=== PATIENT | male | born 1940 | race Caucasian/White ===

== ENCOUNTER 2018-02-15 06:10 | Outpatient (CLI) | payer MEDICARE, OTHER ==
[~2018-02-15] VITALS: Ht 175.3 cm; Wt 104.3 kg
[~2018-02-15 06:10] MED LIST: AMIL1TAB PO; ASP81TEC PO; ATEN25TA PO; ATR20T PO; ENAL5TAB PO; POTA10CA43 PO
[2018-02-15] MEDS ORDERED: ENAL5TAB PO (16:04)
[2018-02-15] MEDS ORDERED: ATOR20TA66 PO (16:04)
[2018-02-15] MEDS ORDERED: AMIL1TAB PO (16:04)
[2018-02-15] MEDS ORDERED: ATEN25TA PO (16:04)
[2018-02-15] MEDS ORDERED: POTA-51 PO (16:04)
[2018-02-15] MEDS ORDERED: ASPI-999 PO (16:04)
== END 2018-02-15 16:07 ==
LOC: PREOP 06:10
PROVIDERS: ATTEND Specialist
DX: Z01.818 Encounter for other preprocedural examination (principal)

== ENCOUNTER 2018-02-17 08:50 | Day surgery (SDC) | payer MEDICARE, OTHER ==
[~2018-02-17] VITALS: Ht 175.3 cm; Wt 104.3 kg
[~2018-02-17 08:50] MED LIST changes: +ASPI-999 PO; +ATOR20TA66 PO; +POTA-51 PO
[2018-02-17 09:00] VITALS: BP 161/99
[2018-02-17] MEDS ORDERED: POVIDONE (BETADINE) OPHTH SOLN 5% 30 ML OP ONE (09:00)
[2018-02-17] MEDS ORDERED: VANCOMYCIN/BSS (COMPOUNDED) 10 MG/ML SYR OP ONE (09:00)
[2018-02-17] MEDS ORDERED: EPINEPHrine INJECTION 1 MG/ML AMP INJ ONE (09:00)
[2018-02-17] MEDS ORDERED: LIDOCAINE PF 1% 2 ML AMP IR PRN (09:00)
[2018-02-17] MEDS ORDERED: TIMOLOL MALEATE 0.5% 5 ML (TIMOPTIC) BTL OU PRN (09:00)
[2018-02-17] MEDS: TETRACAINE 0.5% OPHTH SOLN 4 ML BTL (SINGLE DOSE ONLY) OU PRN ×4 (09:13→09:22)
[2018-02-17] MEDS: CYCLOPENTOLATE 1% (CYCLOGYL) 2 ML DROPS OP SCH ×3 (09:16→09:22)
[2018-02-17] MEDS: PHENYLEPHRINE 10% OPHTH (NEO-SYN) 5 ML BTL OU SCH ×3 (09:16→09:22)
[2018-02-17] MEDS ORDERED: MIDAZOLAM 2 MG/2 ML (VERSED) VIAL ONE (09:26)
--- NOTE | 2018-02-17 09:30 | Ophthalmologist Pre-Op Note ---
Pre-Operative Progress Note H&P Reviewed The H&P was reviewed, patient examined and no changes noted. Date H&P Reviewed: Feb 17, 2018 Time H&P Reviewed: 09:30 Pre-Op Dx Cataract, Right Eye MADELINE MUJICA MD Feb 17, 2018 09:30
--- NOTE | 2018-02-17 09:51 | Ophthalmology Operative Report ---
Cataract removal/placement IOL PREOPERATIVE DIAGNOSIS: Cataract Right Eye POSTOPERATIVE DIAGNOSIS: Cataract Right Eye PROCEDURE: Cataract removal and placement of posterior chamber implant, right eye SURGEON: Rajendra Mujica ANESTHESIA: Topical with sedation COMPLICATIONS: None ESTIMATED BLOOD LOSS: Minimal DESCRIPTION OF PROCEDURE: After proper informed consent was obtained, the patient, a 77 male, was taken to the Operating Room and the right eye was anesthetized with tetracaine. The right eye was then prepped and draped in the usual manner. A wire lid speculum was placed. A paracentesis was made at the left hand position. Preservative free lidocaine was injected into the anterior chamber followed by viscoelastic. A clear corneal incision was made in the temporal position. A capsulorrhexis was preformed and the central nuclear and cortical material were removed. The posterior capsule was polished and Phoenix 21.0 [id number] IOL was placed into the capsular bag. The residual viscoelastic was aspirated and balanced saline solution was injected into the anterior chamber. Vancomycin was injected into the anterior chamber. The wound was checked and found to be water tight. The patient tolerated the procedure well without complications. RAJENDRA MUJICA MD Feb 17, 2018 09:51
[2018-02-17 10:00] VITALS: BP 143/84
--- NOTE | 2018-02-17 10:21 | Anesthesia-General Post-Op ---
MAC Patient Condition Mental Status/LOC: Same as Preop Cardiovascular: Satisfactory Nausea/Vomiting: Absent Respiratory: Satisfactory Pain: Controlled Complications: Absent Post Op Complications Complications None Follow Up Care/Instructions Patient Instructions None needed. Anesthesiology Discharge Order Discharge Order Patient is doing well, no complaints, stable vital signs, no apparent adverse anesthesia problems. No complications reported per nursing. WALTER WHITE CRNA Feb 17, 2018 10:21
== END 2018-02-17 10:00 | disposition home or self-care (01) ==
LOC: SDC 08:50
PROVIDERS: ATTEND Specialist
DX: H26.9 Unspecified cataract (principal); I10 Essential (primary) hypertension; Z87.891 Personal history of nicotine dependence; Z79.82 Long term (current) use of aspirin

== ENCOUNTER 2019-09-13 12:56 | Emergency (ER) | payer MEDICARE, OTHER ==
[~2019-09-13] VITALS: Ht 167 cm; Wt 100.3 kg
[~2019-09-13 12:56] MED LIST changes: +ENLP5T PO
[2019-09-13] MEDS ORDERED: fentaNYL INJECTION 100 MCG/2 ML AMP IVP ONE (14:30)
[2019-09-13 14:37] LABS: BASOPHILS # (AUTO) 0.1 10^3/uL (0.0-0.1); BASOPHILS % (AUTO) 0 % (0-10); EOSINOPHILS # (AUTO) 0.2 10^3/uL (0.0-0.3); EOSINOPHILS % (AUTO) 1 % (0-10); HEMATOCRIT 50 % (40-54); HEMOGLOBIN 17.4 G/DL (13.3-17.7); LYMPHOCYTES # (AUTO) 1.7 X 10^3 (1.0-4.0); LYMPHOCYTES % (AUTO) 9 % (12-44); MEAN CORPUSCULAR HEMOGLOBIN 31 PG (25-34); MEAN CORPUSCULAR HGB CONC 35 G/DL (32-36); MEAN CORPUSCULAR VOLUME 90 FL (80-99); MEAN PLATELET VOLUME 10.1 FL (7.4-10.4); MONOCYTES # (AUTO) 1.4 X 10^3 (0.0-1.0); MONOCYTES % (AUTO) 8 % (0-12); NEUTROPHILS # (AUTO) 15.4 X 10^3 (1.8-7.8); NEUTROPHILS % (AUTO) 82 % (42-75); PLATELET COUNT 311 10^3/uL (130-400); RED CELL DISTRIBUTION WIDTH 12.9 % (10.0-14.5); WHITE BLOOD COUNT 18.7 10^3/uL (4.3-11.0)
[2019-09-13 15:01] LABS: BAND NEUTROPHILS 0 %; BASOPHILS % (MANUAL) 0 %; EOSINOPHILS % (MANUAL) 1 %; LYMPHOCYTES % (MANUAL) 13 %; MONOCYTES % (MANUAL) 5 %; NEUTROPHILS % (MANUAL) 81 %; RBC MORPH NORMAL
[2019-09-13 15:03] LABS: ALANINE AMINOTRANSFERASE 17 U/L (0-55); ALBUMIN 4.4 GM/DL (3.2-4.5); ALKALINE PHOSPHATASE 96 U/L (40-136); BILIRUBIN,TOTAL 0.8 MG/DL (0.1-1.0); BUN/CREATININE RATIO 15; CALCIUM 8.9 MG/DL (8.5-10.1); CARBON DIOXIDE 25 MMOL/L (21-32); CHLORIDE 100 MMOL/L (98-107); CREATININE SERUM 0.97 MG/DL (0.60-1.30); GFR ESTIMATED > 60; GLUCOSE 100 MG/DL (70-105); POTASSIUM 3.7 MMOL/L (3.6-5.0); SODIUM 137 MMOL/L (135-145); TOTAL PROTEIN 7.2 GM/DL (6.4-8.2)
[2019-09-13] MEDS ORDERED: HOLD METFORMIN - RECEIVED CONTRAST 20 ML VIAL IV SCH (15:30)
[2019-09-13] MEDS ORDERED: IOHEXOL 350 MG/ML 100 ML (OMNIPAQUE 350) VIAL IV ONE (15:30)
--- NOTE | 2019-09-13 16:09 | Diagnostic Imaging Report ---
EXAMINATION: CT Abdomen and Pelvis with intravenous contrast. TECHNIQUE: Multiple contiguous axial images were obtained through the abdomen and pelvis after the uneventful administration of intravenous contrast. All CT scans use one or more of the following dose optimizing techniques: automated exposure control, MA and/or KvP adjustment based on a patient size and exam type, or iterative reconstruction. HISTORY: Difficulty urinating. COMPARISON: 09/28/2006. FINDINGS: Limited views of the lower thorax show mild coronary artery calcifications. The liver is normal without focal lesion. There is no biliary ductal dilation. Gallbladder is absent. Pancreas is normal. Calcified granulomas are present in the liver and spleen. Adrenal glands are normal. Cyst is present in the left kidney. No suspicious kidney lesions. There is no hydronephrosis. Urinary bladder is distended. There is a fat-containing umbilical hernia. Prostate is enlarged. There is a small fat-containing right inguinal hernia. Large stool ball is present in the rectum with perirectal stranding and mild distal rectal wall thickening. No free fluid or air. No abdominal or pelvic lymphadenopathy. Aorta is normal in caliber without aneurysm. There are no suspicious osseus lesions. IMPRESSION: 1. Enlarged prostate with distended bladder, concerning for chronic outlet obstruction. 2. Rectal wall thickening and presacral stranding in the setting of large stool ball, concerning for stercoral proctitis. Dictated by: Dictated on workstation # [id number]
[2019-09-13 16:14] LABS: BILIRUBIN,URINE NEGATIVE (NEGATIVE); CLARITY,URINE CLEAR; COLOR,URINE YELLOW; GLUCOSE, URINE (UA) NEGATIVE (NEGATIVE); KETONES,URINE NEGATIVE (NEGATIVE); LEUKOCYTE ESTERASE ,URINE NEGATIVE (NEGATIVE); NITRITE,URINE NEGATIVE (NEGATIVE); PH,URINE 6.5 (5-9); PROTEIN,URINE NEGATIVE (NEGATIVE)
[2019-09-13 16:23] LABS: BACTERIA,URINE NEGATIVE /HPF
[2019-09-13] MEDS ORDERED: LEVOFLOXACIN 500 MG/100 ML IV 100 ML IV ONE (16:30)
[2019-09-13] MEDS ORDERED: KETOROLAC 30 MG/ML VIAL IVP ONE (16:30)
[2019-09-13] MEDS ORDERED: LIDOCAINE 2% VISCOUS 15 ML UDC MM ONE (16:45)
--- NOTE | 2019-09-13 16:55 | NUR ---
PROVIDER IN ROOM FOR RECTAL EXAM AND FECAL OCCULT EXAM
--- NOTE | 2019-09-13 17:07 | ED Abdominal Pain ---
General Chief Complaint: Abdominal/GI Problems Stated Complaint: LOWER ABD PAIN Nursing Triage Note: LOWER ABD PAIN STARTING THIS AM. STATES HE USED A SUPPOSITORY AND AN ENEMA AND ONLY HAVING LIQUID RESULTS. Sepsis Screen: No Definite Risk Source of Information: Patient Exam Limitations: No Limitations History of Present Illness Date Seen by Provider: Sep 13, 2019 Time Seen by Provider: 13:34 Initial Comments This 79-year-old gentleman presents to the emergency room with complaints of pelvic pain, feeling of urinary urgency without being able to void, and constipation. It has been about 48 hours since he has been able to produce a bowel movement. He denies any vomiting or fever. He does not report any blood in the urine or stools. He did try using a suppository and an enema and has had some liquid returned from the enema. He normally takes a stool softener every day. Allergies and Home Medications Allergies Coded Allergies: No Known Drug Allergies (Unverified , 02/15/18) Home Medications Amiloride/Hydrochlorothiazide 1 Each Tablet, 1 EACH PO DAILY, (Reported) Aspirin 81 Mg Tab.chew, 81 MG PO DAILY, (Reported) Atenolol 25 Mg Tablet, 25 MG PO DAILY, (Reported) Atorvastatin Calcium 20 Mg Tablet, 20 MG PO DAILY, (Reported) Enalapril Maleate 5 Mg Tablet, 5 MG PO DAILY, (Reported) Levofloxacin 500 Mg Tablet, 500 MG PO DAILY Prescribed by: SAUNDRA PERKINS on 09/13/191808 Metronidazole 500 Mg Tablet, 500 MG PO TID Prescribed by: SAUNDRA PERKINS on 09/13/191808 Polyethylene Glycol 3350 119 Gm Powder, 238 GM PO ONCE Mix with 64 oz of Gatorade and drink 8 ounces every 15 minutes until a good stool is produced. Prescribed by: SAUNDRA PERKINS on 09/13/191808 Potassium Chloride 20 Meq Tablet.er, 20 MEQ PO BID, (Reported) Tamsulosin HCl 0.4 Mg Cap, 0.4 MG PO DAILY Prescribed by: SAUNDRA PERKINS on 09/13/191808 Patient Home Medication List Home Medication List Reviewed: Yes Review of Systems Review of Systems Constitutional: no symptoms reported EENTM: No Symptoms Reported Respiratory: No Symptoms Reported Cardiovascular: No Symptoms Reported Gastrointestinal: See HPI Genitourinary: See HPI Musculoskeletal: no symptoms reported Skin: no symptoms reported Psychiatric/Neurological: No Symptoms Reported Endocrine: No Symptoms Reported Hematologic/Lymphatic: No Symptoms Reported Past Eawvjas-Euqzwq-Jugcgx Hx Past Med/Social Hx: Reviewed and Corrections made Patient Social History Alcohol Use: Denies Use Recreational Drug Use: No Smoking Status: Former Smoker Recent Foreign Travel: No Contact w/Someone Who Travel: No Recent Infectious Disease Expo: No Recent Hopitalizations: No Immunizations Up To Date PED Vaccines UTD: Yes Date of Pneumonia Vaccine: Apr 02, 2010 Date of Influenza Vaccine: May 06, 2011 Past Medical History Surgeries: Yes Gallbladder Respiratory: No Cardiac: Yes Hypertension Neurological: No Reproductive Disorders: No Sexually Transmitted Disease: No Genitourinary: No Gastrointestinal: No Musculoskeletal: No Endocrine: No HEENT: No Cancer: No Psychosocial: No Integumentary: No Blood Disorders: No Physical Exam Vital Signs Vital Signs - First Documented 09/13/19 13:05 Temp 35.8 Pulse 72 Resp 16 B/P (MAP) 155/99 (117) Pulse Ox 96 O2 Delivery Room Air Capillary Refill : Less Than 3 Seconds Height/Weight/BMI Height: 5'9.00" Weight: 230lbs. 0.0oz. 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, no motor/sensory deficits, alert, normal mood/affect, oriented x 3 Skin: normal color, warm/dry Progress/Results/Core Measures Results/Orders Lab Results Laboratory Tests Test 09/13/19 14:27 09/13/19 16:04 Range/Units White Blood Count 18.7 H 4.3-11.0 10^3/uL Red Blood Count 5.55 4.35-5.85 10^6/uL Hemoglobin 17.4 13.3-17.7 G/DL Hematocrit 50 40-54 % Mean Corpuscular Volume 90 80-99 FL Mean Corpuscular Hemoglobin 31 25-34 PG Mean Corpuscular Hemoglobin Concent 35 32-36 G/DL Red Cell Distribution Width 12.9 10.0-14.5 % Platelet Count 311 130-400 10^3/uL Mean Platelet Volume 10.1 7.4-10.4 FL Neutrophils (%) (Auto) 82 H 42-75 % Lymphocytes (%) (Auto) 9 L 12-44 % Monocytes (%) (Auto) 8 0-12 % Eosinophils (%) (Auto) 1 0-10 % Basophils (%) (Auto) 0 0-10 % Neutrophils # (Auto) 15.4 H 1.8-7.8 X 10^3 Lymphocytes # (Auto) 1.7 1.0-4.0 X 10^3 Monocytes # (Auto) 1.4 H 0.0-1.0 X 10^3 Eosinophils # (Auto) 0.2 0.0-0.3 10^3/uL Basophils # (Auto) 0.1 0.0-0.1 10^3/uL Neutrophils % (Manual) 81 % Lymphocytes % (Manual) 13 % Monocytes % (Manual) 5 % Eosinophils % (Manual) 1 % Basophils % (Manual) 0 % Band Neutrophils 0 % Blood Morphology Comment NORMAL Sodium Level 137 135-145 MMOL/L Potassium Level 3.7 3.6-5.0 MMOL/L Chloride Level 100 98-107 MMOL/L Carbon Dioxide Level 25 21-32 MMOL/L Anion Gap 12 5-14 MMOL/L Blood Urea Nitrogen 15 7-18 MG/DL Creatinine 0.97 0.60-1.30 MG/DL Estimat Glomerular Filtration Rate > 60 BUN/Creatinine Ratio 15 Glucose Level 100 70-105 MG/DL Calcium Level 8.9 8.5-10.1 MG/DL Corrected Calcium 8.6 8.5-10.1 MG/DL Total Bilirubin 0.8 0.1-1.0 MG/DL Aspartate Amino Transf (AST/SGOT) 18 5-34 U/L Alanine Aminotransferase (ALT/SGPT) 17 0-55 U/L Alkaline Phosphatase 96 40-136 U/L C-Reactive Protein High Sensitivity 0.09 0.00-0.50 MG/DL Total Protein 7.2 6.4-8.2 GM/DL Albumin 4.4 3.2-4.5 GM/DL Urine Color YELLOW Urine Clarity CLEAR Urine pH 6.5 5-9 Urine Specific [place] 1.010 L 1.016-1.022 Urine Protein NEGATIVE NEGATIVE Urine Glucose (UA) NEGATIVE NEGATIVE Urine Ketones NEGATIVE NEGATIVE Urine Nitrite NEGATIVE NEGATIVE Urine Bilirubin NEGATIVE NEGATIVE Urine Urobilinogen 0.2 < = 1.0 MG/DL Urine Leukocyte Esterase NEGATIVE NEGATIVE Urine RBC (Auto) NEGATIVE NEGATIVE Urine RBC NONE /HPF Urine WBC NONE /HPF Urine Squamous Epithelial Cells NONE /HPF Urine Crystals NONE /LPF Urine Bacteria NEGATIVE /HPF Urine Casts NONE /LPF Urine Mucus NEGATIVE /LPF Urine Culture Indicated NO My Orders Orders - SAUNDRA CLIFFORD MD Cbc With Automated Diff (09/13/19 13:02) Comprehensive Metabolic Panel (09/13/19 13:02) Hs C Reactive Protein (09/13/19 13:02) Ua Culture If Indicated (09/13/19 13:02) Ed Iv/Invasive Line Start (09/13/19 13:02) Bladder Scan (09/13/19 13:48) Fentanyl Injection (Sublimaze Injection (09/13/19 14:30) Manual Differential (09/13/19 14:27) Ct Abdomen/Pelvis W (09/13/19 15:14) Iohexol Injection (Omnipaque 350 Mg/Ml 1 (09/13/19 15:30) Received Contrast (Hold Metformin- Contr (09/13/19 15:30) Ketorolac Injection (Toradol Injection) (09/13/19 16:30) Levofloxacin 500 Mg/100 Ml Iv (Levaquin (09/13/19 16:30) Lidocaine 2% Viscous 15 Ml (Xylocaine Vi (09/13/19 16:45) Medications Given in ED Current Medications Medications Dose Ordered Sig/Jorge A Route Start Time Stop Time Status Last Admin Dose Admin Fentanyl Citrate 50 mcg ONCE ONCE IVP 09/13/19 14:30 09/13/19 14:31 DC 09/13/19 14:43 50 MCG Iohexol 100 ml ONCE ONCE IV 09/13/19 15:30 09/13/19 15:31 DC 09/13/19 15:59 100 ML Ketorolac Tromethamine 15 mg ONCE ONCE IVP 09/13/19 16:30 09/13/19 16:31 DC 09/13/19 16:40 15 MG Levofloxacin/ Dextrose 100 ml @ 100 mls/hr ONCE ONCE IV 09/13/19 16:30 09/13/19 17:29 DC 09/13/19 16:39 100 MLS/HR Lidocaine HCl 5 ml ONCE ONCE MM 09/13/19 16:45 09/13/19 16:46 DC 09/13/19 16:40 5 ML Vital Signs/I&O 09/13/19 13:05 Temp 35.8 Pulse 72 Resp 16 B/P (MAP) 155/99 (117) Pulse Ox 96 O2 Delivery Room Air Blood Pressure Mean: 117 Progress Progress Note : Progress Note Bladder scan was performed and showed no significant urine volume. However, by the time of CT scan the bladder was full and mildly distended. Patient did void at that time but not as much as what was in his bladder. CT was obtained because of leukocytosis in the context of his pain. CT revealed possible chronic urinary obstruction along with inflammatory changes consistent with proctitis with associated fecal ball. I discussed the case with Dr. Carlin who recommended manual disimpaction. Patient was treated with Toradol and then an attempt at manual disimpaction was made using viscous lidocaine as the lubricant. Small amount of stool was broken up and extracted. A ballotable residual fecal ball was still palpable. Patient did pass some stool once after the CT scan and once after the attempt at fecal disimpaction. Dr. Carlin recommended aggressive washout with polyethylene glycol and enemas. See discharge instructions. Diagnostic Imaging Diagonstic Imaging: CT Plain Films/CT/US/NM/MRI: abdomen, pelvis Comments CT abdomen and pelvis viewed by me and report reviewed. See report below: NAME: JUAN SALCEDO [facility] REC#: [id number] PT STATUS: REG ER : 1940 PHYSICIAN: SAUNDRA CLIFFORD MD ADMIT DATE: 09/13/19/ER Signed Date of Exam:09/13/19 CT ABDOMEN/PELVIS W EXAMINATION: CT Abdomen and Pelvis with intravenous contrast. TECHNIQUE: Multiple contiguous axial images were obtained through the abdomen and pelvis after the uneventful administration of intravenous contrast. All CT scans use one or more of the following dose optimizing techniques: automated exposure control, MA and/or KvP adjustment based on a patient size and exam type, or iterative reconstruction. HISTORY: Difficulty urinating. COMPARISON: 09/28/2006. FINDINGS: Limited views of the lower thorax show mild coronary artery calcifications. The liver is normal without focal lesion. There is no biliary ductal dilation. Gallbladder is absent. Pancreas is normal. Calcified granulomas are present in the liver and spleen. Adrenal glands are normal. Cyst is present in the left kidney. No suspicious kidney lesions. There is no hydronephrosis. Urinary bladder is distended. There is a fat-containing umbilical hernia. Prostate is enlarged. There is a small fat-containing right inguinal hernia. Large stool ball is present in the rectum with perirectal stranding and mild distal rectal wall thickening. No free fluid or air. No abdominal or pelvic lymphadenopathy. Aorta is normal in caliber without aneurysm. There are no suspicious osseus lesions. IMPRESSION: 1. Enlarged prostate with distended bladder, concerning for chronic outlet obstruction. 2. Rectal wall thickening and presacral stranding in the setting of large stool ball, concerning for stercoral proctitis. Dictated by: Dictated on workstation # [id number] Dict: 09/13/19 1557 Trans: 09/13/19 1647 [id number] Interpreted by: CORNELIA PASCAL MD Electronically signed by: CORNELIA PASCAL MD 09/13/19 1647 Departure Impression Primary Impression: Proctitis Additional Impressions: Fecal impaction in rectum Urinary retention Disposition: 01 HOME, SELF-CARE Condition: Improved Departure-Patient Inst. Referrals: CORNELIA CAN MD (PCP) Primary Care Physician SANDY CARLIN DO Patient Instructions: Fecal Impaction, Proctitis Add. Discharge Instructions: Use MiraLAX (polyethylene glycol) as directed. Mix 238 g with 64 ounces of Gatorade. Try to drink 8 ounces every 15 minutes until a good stool is produced. You may also use enemas once or twice daily for 2 or 3 more doses. Complete the antibiotics as directed. Start Flomax to help with urine flow. Follow-up with your primary care provider soon as possible. Follow-up with Dr. Carlin (surgeon) for reevaluation of your proctitis. Please also be aware that the blood testing on your stool was positive. This should be reviewed and possi patricia retested with Dr. Can or Dr. Carlin. Once the fecal impaction resolves, continue to drink plenty of clear liquids and eat a diet high in fiber including plenty of fruits, vegetables, and whole grains. For pain you may take Tylenol (acetaminophen) up to 1000 mg every 6 hours as needed. Add ibuprofen up to 400 mg every 4 hours as needed for additional pain relief. Return to the emergency room if you have worsening symptoms despite following these instructions. All discharge instructions reviewed with patient and/or family. Voiced understanding. Scripts Tamsulosin HCl (Flomax) 0.4 Mg Cap 0.4 MG PO DAILY, #30 CAP Prov: SAUNDRA CLIFFORD MD 09/13/19 Metronidazole (Flagyl) 500 Mg Tablet 500 MG PO TID, #30 TAB Prov: SAUNDRA CLIFFORD MD 09/13/19 Levofloxacin (Levaquin) 500 Mg Tablet 500 MG PO DAILY, #9 TAB Prov: SAUNDRA CLIFFORD MD 09/13/19 Polyethylene Glycol 3350 (Miralax) 119 Gm Powder 238 GM PO ONCE, #2 EA Mix with 64 oz of Gatorade and drink 8 ounces every 15 minutes until a good stool is produced. Prov: SAUNDRA CLIFFORD MD 09/13/19 Copy Copies To 1: CORNELIA CAN MD, JOSHUA T MD Sep 13, 2019 17:07
[2019-09-13] MEDS ORDERED: METR500T PO ×2 (17:42→18:09)
[2019-09-13] MEDS ORDERED: POLY119P5 PO ×2 (17:42→18:09)
[2019-09-13] MEDS ORDERED: TMSL.4C PO ×2 (17:42→18:09)
[2019-09-13] MEDS ORDERED: LEVO500T2 PO ×2 (17:42→18:09)
[2019-09-13 18:07] VITALS: BP 170/99
== END 2019-09-13 18:07 | disposition home or self-care (01) ==
LOC: EDUNIT# 12:56 → ER 12:58
DX: K62.89 Other specified diseases of anus and rectum (principal); K56.41 Fecal impaction; R33.9 Retention of urine, unspecified; I10 Essential (primary) hypertension; Z79.82 Long term (current) use of aspirin; Z87.891 Personal history of nicotine dependence
CPT/HCPCS: 36415; 74177; 80053; 81000; 85007; 85027; 86141

== ENCOUNTER 2020-03-21 10:35 | Outpatient (RCR) | payer MEDICARE, OTHER ==
[~2020-03-21 10:35] MED LIST changes: +LEVO500T2 PO; +METR500T PO; +POLY119P5 PO; +TMSL.4C PO
== END 2020-05-27 | disposition home or self-care (01) ==
PROVIDERS: ATTEND Internal Medicine
DX: M25.552 Pain in left hip (principal); M54.42 Lumbago with sciatica, left side

== ENCOUNTER → 2020-07-08 | Outpatient (CLI) | payer MEDICARE, OTHER ==
--- NOTE | 2020-07-08 09:54 | Diagnostic Imaging Report ---
EXAMINATION: Chest 2 view HISTORY: Cough. Covid positive. COMPARISON: None available. FINDINGS: The lung volumes are normal. A small amount of patchy opacities are seen in the left lung base. Nodule is seen in the right lung base likely representing a partially calcified granuloma. No large pleural effusion or pneumothorax is seen. The cardiomediastinal silhouette is normal in size and contour. No acute osseous abnormality is seen. IMPRESSION: 1. Small amount of patchy opacities in the left lung base. This may represent a focus of infection versus atelectasis. 2. Partially calcified granuloma in the right lung base. Dictated by: Dictated on workstation # [id number]
== END ==
LOC: RAD 09:32
PROVIDERS: ATTEND Physician Assistant
DX: J98.4 Other disorders of lung (principal); R91.8 Other nonspecific abnormal finding of lung field; Z86.19 Personal history of other infectious and parasitic diseases
CPT/HCPCS: 71046

== ENCOUNTER → 2022-10-05 | Outpatient (CLI) | payer MEDICARE, OTHER ==
--- NOTE | 2022-10-05 15:39 | Diagnostic Imaging Report ---
INDICATION: Cough. TECHNIQUE/COMPARISON: PA and lateral films of the chest were obtained at 2:55 PM and compared to 07/08/2020. FINDINGS: The heart and mediastinal silhouette are normal in appearance. The lungs show no focal infiltrate. There is a stable calcified granuloma in the right base. There is no pneumothorax or pleural fluid. IMPRESSION: No acute process in the chest. Dictated by: Dictated on workstation # [id number]
== END ==
LOC: RAD 14:31
PROVIDERS: ATTEND Nurse Practitioner Family
DX: R05.9 Cough, unspecified (principal)
CPT/HCPCS: 71046

== ENCOUNTER → 2022-10-21 | Outpatient (CLI) | payer MEDICARE, OTHER ==
[~2022-10-21] MED LIST changes: +ENAL-66 PO; -ENLP5T PO; +RT-ALBUTEROL SULF 2.5 MG/3 ML PRE-MIX VIAL INH ONE
--- NOTE | 2022-10-21 12:52 | Diagnostic Imaging Report ---
PROCEDURE: CT chest without contrast. TECHNIQUE: Multiple contiguous axial images were obtained through the chest without the use of intravenous contrast. Auto Exposure Controls were utilized during the CT exam to meet ALARA standards for radiation dose reduction. DATE: October 21, 2022. COMPARISON: Chest radiographs October 05, 2022. INDICATION: 82-year-old male, cough for 2 months. FINDINGS: There are reticulonodular opacities in the medial aspect of the right middle lobe. There is also mild focal bronchiectasis at this location. There is a calcified right lower lobe granuloma on axial image 77 measuring 1.6 cm in size. There is nonspecific left lower lobe bronchial wall thickening. There is no pneumothorax. There is no pleural effusion. The central airways are patent. There are calcified right hilar and subcarinal lymph nodes compatible with sequela of prior granulomatous disease. There is no identified noncalcified mediastinal or axillary lymph node which specifically meets CT size criteria for adenopathy. There are coronary artery calcifications and additional areas of atherosclerotic disease. The heart is not enlarged. There is no identified pericardial effusion. There are calcifications in the liver and spleen, likely reflecting sequela of prior granulomatous disease. The gallbladder is surgically absent. The additional evaluation of the imaged portions of the upper abdomen are unremarkable. There are degenerative changes of the spine. IMPRESSION: CT CHEST. 1. Reticulonodular opacities in the medial aspect of the right middle lobe with mild focal bronchiectasis at this location. This is most likely infectious or inflammatory in nature and is of uncertain exact acuity. An infectious bronchiolitis would be considered. 2. Sequela of prior granulomatous disease. 3. Nonspecific left lower lobe bronchial wall thickening. Dictated by: Dictated on workstation # [id number]
== END ==
LOC: RT 10:45
PROVIDERS: ATTEND Nurse Practitioner Family
DX: R05.9 Cough, unspecified (principal)
CPT/HCPCS: 71250; 94060; 94726; 94729

== ENCOUNTER 2023-05-17 05:36 | Outpatient (CLI) | payer MEDICARE, OTHER ==
[~2023-05-17] VITALS: Ht 172.7 cm; Wt 102.7 kg
[~2023-05-17 05:36] MED LIST changes: +POTA-330 PO; -POTA-51 PO; -RT-ALBUTEROL SULF 2.5 MG/3 ML PRE-MIX VIAL INH ONE
[2023-05-17] MEDS ORDERED: COLC0.6T53 PO (10:50)
[2023-05-17] MEDS ORDERED: DOCU250C97 PO (10:50)
[2023-05-17] MEDS ORDERED: FLUT9.9S NS (10:50)
== END 2023-05-17 11:01 | disposition home or self-care (01) ==
LOC: PREOP 05:36
PROVIDERS: ATTEND Specialist
DX: Z01.818 Encounter for other preprocedural examination (principal)

== ENCOUNTER 2023-05-20 09:58 | Day surgery (SDC) | payer MEDICARE, OTHER ==
[~2023-05-20] VITALS: Ht 172.7 cm; Wt 102.7 kg
[~2023-05-20 09:58] MED LIST changes: +COLC0.6T53 PO; +DOCU250C97 PO; +FLUT9.9S NS
[2023-05-20 10:26] VITALS: BP 168/86
--- NOTE | 2023-05-20 10:28 | Ophthalmologist Pre-Op Note ---
Pre-Operative Progress Note H&P Reviewed The H&P was reviewed, patient examined and no changes noted. Date H&P Reviewed: May 20, 2023 Time H&P Reviewed: 10:28 Pre-Op Dx Secondary Cataract, Bilateral Eyes MADELINE MUJICA MD May 20, 2023 10:28
[2023-05-20] MEDS ORDERED: TROPICAMIDE 1% OPH SOLN (MYDRIACYL) 15 ML BTL OU PRN (10:30)
[2023-05-20] MEDS ORDERED: PHENYLEPHRINE 10% OPHTH SOLN 5 ML BTL OU PRN (10:30)
[2023-05-20] MEDS: TETRACAINE 0.5% OPHTH SOLN 4 ML BTL (SINGLE DOSE ONLY) OU PRN ×2 (10:31→10:36)
--- NOTE | 2023-05-20 11:35 | Ophthalmology Operative Report ---
YAG Capsulotomy PREOPERATIVE DIAGNOSIS: Secondary Cataract Bilateral POSTOPERATIVE DIAGNOSIS: Secondary Cataract Bilateral PROCEDURE: YAG Capsulotomy, Bilateral SURGEON: Rajendra Mujica ANESTHESIA: Topical anesthesia COMPLICATIONS: None ESTIMATED BLOOD LOSS: Minimal DESCRIPTION OF PROCEDURE: After proper informed consent was obtained, the patient's, a 83 male , received one drop of Tropicamide and one drop of Tetracaine in each eye. The patient was then placed at the YAG laser and using a power of [5.0 ] millijoules and bursts [ 14] right eye and [23 ] left eye were used to fashion a central capsulotomy. The patient tolerated the procedure well without complications. RAJENDRA MUJICA MD May 20, 2023 11:35
== END 2023-05-20 10:45 | disposition home or self-care (01) ==
LOC: SDC 09:58
PROVIDERS: ATTEND Specialist
DX: H26.40 Unspecified secondary cataract (principal); Z87.891 Personal history of nicotine dependence